=== PATIENT | female | born 1985 | race African-American/Black ===

== ENCOUNTER 2017-03-03 12:12 | Inpatient (IN) | payer OTHER ==
[~2017-03-03] VITALS: Ht 149.9 cm; Wt 98.0 kg
[2017-03-03] MEDS ORDERED: DEXT 5%/LR + PITOCIN 20UNITS/L 1,000 ML IV SCH (12:37)
[2017-03-03] MEDS ORDERED: PREN-88 PO (12:39)
[2017-03-03] MEDS ORDERED: CARBOPROST TROMETHAMINE 250 MCG/ML AMPUL IM PRN (12:45)
[2017-03-03] MEDS ORDERED: METHYLERGONOVINE MALEATE 0.2 MG/ML IM PRN (12:45)
[2017-03-03 13:41] LABS: BASOPHILS % 0.6 % (0.0-2.0); EOSINOPHILS % 0.8 % (0.0-5.0); HEMATOCRIT. 33.8 % (36.0-48.0); LYMPHOCYTES % 24.3 % (20.0-50.0); MEAN CORPUSCULAR HEMOGLOBIN 25.3 pg (28.0-32.0); MEAN CORPUSCULAR VOLUME 77.7 fL (81.0-99.0); MEAN PLATELET VOLUME 9.8 fl (7.4-10.4); MONOCYTES % 5.8 % (2.0-8.0); NEUTROPHILS % 68.5 % (40.0-76.0); PLATELET 223 x1000/uL (130-400); RED BLOOD CELL COUNT 4.35 mill/uL (4.2-5.4); RED CELL DISTRIBUTION WIDTH 14.6 % (11.6-14.6)
[2017-03-03 13:44] LABS: CLARITY URINE CLEAR (CLEAR); COLOR URINE YELLOW (YELLOW); GLUCOSE URINE NEGATIVE (NEGATIVE); KETONES URINE TRACE (NEGATIVE); LEUKOCYTE ESTERASE URINE 1+ (NEGATIVE); NITRITE URINE NEGATIVE (NEGATIVE); OCCULT BLOOD URINE 1+ (NEGATIVE); PROTEIN URINE NEGATIVE (NEGATIVE); SPECIFIC GRAVITY URINE 1.015 (1.005-1.030); UROBILINOGEN URINE 0.2 E.U./dL (0.2-1.0)
[2017-03-03 13:48] LABS: CHLORIDE 108 mEq/L (98-107)
[2017-03-03 13:54] LABS: CARBON DIOXIDE 24 mEq/L (21-32)
[2017-03-03 14:00] LABS: D-DIMER 6.98 mg/L FEU (<0.50); PARTIAL THROMBOPLASTIN TIME 29.6 sec (24.0-34.0)
[2017-03-03 14:08] LABS: *AMPHETAMINES SCREEN URINE NEGATIVE (NEGATIVE); *BARBITURATES SCREEN URINE NEGATIVE (NEGATIVE); *BENZODIAZEPINES SCREEN URINE NEGATIVE (NEGATIVE); *COCAINE SCREEN URINE NEGATIVE (NEGATIVE); CANNABINOID URINE SCREEN NEGATIVE (NEGATIVE); METHADONE URINE SCREEN NEGATIVE (NEGATIVE); OPIATES URINE SCREEN NEGATIVE (NEGATIVE); PHENCYCLIDINE URINE SCREEN NEGATIVE (NEGATIVE)
[2017-03-03 14:21] LABS: HEPATITIS B SURFACE ANTIGEN NEGATIVE; RUBELLA IGG 40.5 IU/mL (4.99-10)
[2017-03-03] MEDS ORDERED: PHENYLEPHRINE HCL 10 MG/ML 1ML (IV VIAL) IV ONE (14:52)
[2017-03-03] MEDS ORDERED: DEXAMETHASONE 4MG/ML 1ML VIAL ONE (14:52)
[2017-03-03] MEDS ORDERED: CEFAZOLIN SODIUM 1000MG/VIAL ONE (14:52)
[2017-03-03] MEDS ORDERED: OXYTOCIN 10 UNITS/ML 1ML ONE (14:52)
[2017-03-03] MEDS ORDERED: EPHEDRINE SULFATE 50MG/ML VIAL ONE (14:52)
[2017-03-03] MEDS ORDERED: ONDANSETRON HCL 4MG/2ML VIAL ONE (14:52)
[2017-03-03] MEDS ORDERED: SODIUM CHLORIDE 0.9% 10ML VIAL ONE (14:52)
[2017-03-03] MEDS: LACTATED RINGERS 1,000 ML IV SCH ×2 (15:02→16:35)
[2017-03-03] MEDS ORDERED: [UNRECOGNIZED DRUG - OTHER] VG (15:08)
[2017-03-03] MEDS ORDERED: MIDAZOLAM HCL 2 MG/2 ML VIAL ONE (16:54)
[2017-03-03] MEDS ORDERED: MORPHINE SULFATE/PF 1MG/ML 10ML AMP ONE (16:54)
[2017-03-03] MEDS ORDERED: FENTANYL CITRATE/PF 50MCG/ML 2ML VIAL ONE (18:02)
[2017-03-03] MEDS ORDERED: LANOLIN OINT 0.25 GM TUBE TOP PRN (18:15)
[2017-03-03] MEDS ORDERED: DIPHENHYDRAMINE 25MG CAPSULE PO PRN (18:15)
[2017-03-03] MEDS ORDERED: ONDANSETRON HCL 4MG/2ML VIAL IV PRN ×2 (18:15→18:45)
[2017-03-03] MEDS ORDERED: NALOXONE HCL 0.4 MG/ML 1ML VIAL IV PRN (18:45)
[2017-03-03] MEDS ORDERED: MORPHINE SULFATE 4 MG/ML CPJ (NOT FOR IM USE) IV PRN (18:45)
[2017-03-03] MEDS ORDERED: DIPHENHYDRAMINE 50MG/ML VIAL IV PRN (18:45)
[2017-03-03] MEDS: KETOROLAC 30MG/ML VIAL IV SCH (18:53)
[2017-03-03] MEDS: DEXT 5%/LR + PITOCIN 20UNITS/L 1,000 ML IV SCH (20:43)
[2017-03-03 21:25] VITALS: BP 124/63
[2017-03-03 21:55] VITALS: BP 110/58
[2017-03-03 22:25] VITALS: BP 102/72
[2017-03-03 22:55] VITALS: BP 93/55
[2017-03-04 00:15] VITALS: BP 100/42
[2017-03-04] MEDS: KETOROLAC 30MG/ML VIAL IV SCH (01:28)
[2017-03-04] MEDS ORDERED: MAGNESIUM 20 G PREMIX (L & D) 500 ML IV SCH (02:00)
[2017-03-04 03:40] VITALS: BP 93/56
[2017-03-04] MEDS: DEXT 5%/LR + PITOCIN 20UNITS/L 1,000 ML IV SCH (04:26)
[2017-03-04 08:35] LABS: BASOPHILS % 0.2 % (0.0-2.0); HEMATOCRIT. 28.8 % (36.0-48.0); HEMOGLOBIN. 9.6 g/dL (12.0-16.0); LYMPHOCYTES % 15.1 % (20.0-50.0); MEAN CORPUSCULAR HEMOGLOBIN 25.8 pg (28.0-32.0); MEAN CORPUSCULAR VOLUME 77.8 fL (81.0-99.0); MEAN PLATELET VOLUME 9.9 fl (7.4-10.4); MONOCYTES % 6.2 % (2.0-8.0); NEUTROPHILS % 78.5 % (40.0-76.0); PLATELET 192 x1000/uL (130-400); RED CELL DISTRIBUTION WIDTH 14.7 % (11.6-14.6)
[2017-03-04 09:03] VITALS: BP 92/50
[2017-03-04] MEDS: HYDROCODONE/ACETAMINOPHEN 5/325MG TABLET PO PRN ×4 (09:18→22:56)
[2017-03-04] MEDS: FERROUS SULFATE 325MG TABLET PO SCH (13:36)
[2017-03-04] MEDS: PRENATAL VIT/FE FUMARATE/FA TABLET PO SCH (13:36)
[2017-03-04 16:15] VITALS: BP 119/77
[2017-03-04] MEDS: CAFFEINE 200MG TABLET PO SCH ×2 (16:44→21:20)
[2017-03-04 19:30] VITALS: BP 120/61
[2017-03-04] MEDS: SIMETHICONE 80MG TABLET CHEW PO SCH (20:12)
[2017-03-04] MEDS: DOCUSATE SODIUM 100MG CAPSULE PO SCH (20:12)
[2017-03-04] MEDS: IBUPROFEN 400MG TABLET PO PRN (20:14)
[2017-03-04] MEDS ORDERED: KETOROLAC 30MG/ML VIAL IV PRN (21:15)
[2017-03-04 23:20] VITALS: BP 108/72
[2017-03-05] MEDS: CAFFEINE 200MG TABLET PO SCH ×4 (01:20→22:24)
[2017-03-05] MEDS: HYDROCODONE/ACETAMINOPHEN 5/325MG TABLET PO PRN (03:13)
[2017-03-05 03:30] VITALS: BP 120/83
[2017-03-05] MEDS ORDERED: ONDANSETRON HCL 4MG/2ML VIAL IV PRN ×2 (03:30)
[2017-03-05] MEDS: MORPHINE SULFATE 4 MG/ML CPJ (NOT FOR IM USE) IV PRN ×5 (03:35→22:23)
[2017-03-05 07:50] VITALS: BP 128/88
[2017-03-05] MEDS: BISACODYL 10MG SUPP PR PRN (15:49)
[2017-03-05] MEDS: FERROUS SULFATE 325MG TABLET PO SCH (15:51)
[2017-03-05] MEDS: PRENATAL VIT/FE FUMARATE/FA TABLET PO SCH (15:51)
[2017-03-05] MEDS: SIMETHICONE 80MG TABLET CHEW PO SCH ×2 (15:52→22:24)
[2017-03-05 16:30] VITALS: BP 126/80
[2017-03-05 19:40] VITALS: BP 108/60
[2017-03-05 21:30] VITALS: BP 126/75
[2017-03-05] MEDS: DOCUSATE SODIUM 100MG CAPSULE PO SCH (22:24)
[2017-03-06 00:15] VITALS: BP 112/76
[2017-03-06 02:22] VITALS: BP 108/60
[2017-03-06] MEDS: CAFFEINE 200MG TABLET PO SCH ×5 (02:29→21:35)
[2017-03-06] MEDS: MORPHINE SULFATE 4 MG/ML CPJ (NOT FOR IM USE) IV PRN (02:31)
[2017-03-06 07:10] VITALS: BP 119/81
[2017-03-06 07:32] VITALS: BP 116/55
[2017-03-06] MEDS: SIMETHICONE 80MG TABLET CHEW PO SCH ×3 (08:47→18:02)
[2017-03-06] MEDS: PRENATAL VIT/FE FUMARATE/FA TABLET PO SCH (08:47)
[2017-03-06] MEDS: FERROUS SULFATE 325MG TABLET PO SCH ×3 (08:48→18:02)
[2017-03-06] MEDS: IBUPROFEN 400MG TABLET PO PRN ×3 (08:48→21:36)
[2017-03-06] MEDS: HYDROCODONE/ACETAMINOPHEN 5/325MG TABLET PO PRN ×2 (13:29→18:13)
[2017-03-06 16:02] VITALS: BP 98/57
[2017-03-06 20:00] VITALS: BP 104/58
[2017-03-06] MEDS: DOCUSATE SODIUM 100MG CAPSULE PO SCH (21:34)
[2017-03-07] VITALS: BP 110/60
[2017-03-07] MEDS: HYDROCODONE/ACETAMINOPHEN 5/325MG TABLET PO PRN ×2 (01:24→07:04)
[2017-03-07] MEDS: CAFFEINE 200MG TABLET PO SCH ×2 (02:04→06:09)
[2017-03-07 04:00] VITALS: BP 118/80
[2017-03-07] MEDS: IBUPROFEN 400MG TABLET PO PRN (04:22)
[2017-03-07] MEDS: PRENATAL VIT/FE FUMARATE/FA TABLET PO SCH (07:55)
[2017-03-07] MEDS: BISACODYL 10MG SUPP PR PRN (07:55)
[2017-03-07] MEDS: FERROUS SULFATE 325MG TABLET PO SCH (07:55)
[2017-03-07] MEDS: SIMETHICONE 80MG TABLET CHEW PO SCH (07:55)
[2017-03-07 08:10] VITALS: BP 110/65
[2017-03-07] MEDS ORDERED: TETANUS, DIPHTHERIA, PERTUSSIS VAC/PF 0.5ML (>7YR OLD) IM ONE (09:00)
== END 2017-03-07 10:30 | disposition home or self-care (01) | DRG 540 ==
LOC: L&D 12:12 → OBSVTOIN 12:12 → 7EST PP/OB 21:11
PROVIDERS: ADMIT Specialist; ATTEND Specialist
PROC: 0UB70ZZ Excision of Bilateral Fallopian Tubes, Open Approach (ICD-10-PCS; 2017-03-03)
PROC: 10D00Z1 Extraction of Products of Conception, Low, Open Approach (ICD-10-PCS; principal; 2017-03-03 18:15)
PROC: 3E0R3GC Introduction of Other Therapeutic Substance into Spinal Canal, Percutaneous Approach (ICD-10-PCS; 2017-03-05)
DX: O99.214 Obesity complicating childbirth (principal); O98.82 Other maternal infectious and parasitic diseases complicating childbirth; O16.4 Unspecified maternal hypertension, complicating childbirth; O99.324 Drug use complicating childbirth; O99.824 Streptococcus B carrier state complicating childbirth; O34.211 Maternal care for low transverse scar from previous cesarean delivery; F12.10 Cannabis abuse, uncomplicated; G97.1 Other reaction to spinal and lumbar puncture; Y84.4 Aspiration of fluid as the cause of abnormal reaction of the patient, or of later complication, without mention of misadventure at the time of the procedure; O89.4 Spinal and epidural anesthesia-induced headache during the puerperium; Y92.239 Unspecified place in hospital as the place of occurrence of the external cause; Z90.49 Acquired absence of other specified parts of digestive tract; Z83.3 Family history of diabetes mellitus; Z37.0 Single live birth; Z68.41 Body mass index [BMI] 40.0-44.9, adult; Z3A.40 40 weeks gestation of pregnancy; Z30.2 Encounter for sterilization; Z23 Encounter for immunization
CPT/HCPCS: 36415; 80053; 80305; 81001; 84550; 85025; 85379; 85384; 85610; 85730; 86592; 86703; 86762; 86850; 86900; 86920; 87340; 88302; 88307; 90715; A4216; J0171; J0690; J1100; J1200; J1885; J2250; J2270; J2274; J2370; J2405; J2590; J3010; J7120; A4315

== ENCOUNTER 2018-07-10 00:43 | Emergency (ER) | payer OTHER ==
[~2018-07-10] VITALS: Ht 167.6 cm; Wt 78.0 kg
[2018-07-10] MEDS ORDERED: CEFAZOLIN 1000MG PREMIX 50 ML IV ONE (05:30)
[2018-07-10] MEDS ORDERED: LIDOCAINE HCL 1% 20ML VIAL (Pyxis) INJ INFIL ONE (05:45)
[2018-07-10] MEDS ORDERED: BACITRACIN ZINC OINT UDPKT TOP ONE (05:45)
[2018-07-10] MEDS ORDERED: ACETAMINOPHEN WITH CODEINE 300/30MG TABLET PO ONE (07:45)
[2018-07-10] MEDS ORDERED: TETANUS, DIPHTHERIA, PERTUSSIS VAC/PF 0.5ML (>7YR OLD) IM ONE (07:45)
[2018-07-10] MEDS ORDERED: LIDOCAINE HCL/PF 1% 10 MG/ML 5ML VIAL IJ ONE (09:15)
[2018-07-10 10:15] VITALS: BP 121/74
== END 2018-07-10 10:55 | disposition home or self-care (01) ==
LOC: ER 01:15
DX: S61.212A Laceration without foreign body of right middle finger without damage to nail, initial encounter (principal); S61.214A Laceration without foreign body of right ring finger without damage to nail, initial encounter; S61.411A Laceration without foreign body of right hand, initial encounter; F17.200 Nicotine dependence, unspecified, uncomplicated; Z90.49 Acquired absence of other specified parts of digestive tract; Z98.890 Other specified postprocedural states; X99.1XXA Assault by knife, initial encounter; Y93.89 Activity, other specified; Y92.89 Other specified places as the place of occurrence of the external cause; Y99.8 Other external cause status
CPT/HCPCS: 12002; 73130; 81025; 90471; 90715; 96365; 99284; J0690; J3490; X7700; Z7610